=== PATIENT | female | born 1975 | race Caucasian/White ===

== ENCOUNTER → 2016-08-27 | Outpatient (CLI) | payer OTHER | END | disposition home or self-care (01) | LOC: YCFC.O 08:12 | PROVIDERS: ATTEND Nurse Practitioner Family | DX: Z13.220 Encounter for screening for lipoid disorders (principal); Z13.29 Encounter for screening for other suspected endocrine disorder ==

== ENCOUNTER → 2019-12-30 | Outpatient (CLI) | payer SELFPAY | LOC: YCFC.O 07:36 | PROVIDERS: ATTEND Family Medicine | DX: Z13.0 Encounter for screening for diseases of the blood and blood-forming organs and certain disorders involving the immune mechanism (principal); E66.9 Obesity, unspecified; E78.1 Pure hyperglyceridemia; Z13.29 Encounter for screening for other suspected endocrine disorder; R73.01 Impaired fasting glucose; E53.8 Deficiency of other specified B group vitamins ==